=== PATIENT | male | born 1990 | race Caucasian/White ===

== ENCOUNTER 2016-11-20 23:14 | Emergency (ER) | payer OTHER ==
[~2016-11-20] VITALS: Ht 175.3 cm; Wt 86.4 kg
[2016-11-20] MEDS ORDERED: OMEP20 PO (23:25)
[2016-11-21] MEDS ORDERED: KETOROLAC TROMETHAMINE 60 MG/2 ML VIAL IM ONE (03:30)
[2016-11-21] MEDS ORDERED: PENICILLIN V POTASSIUM 500 MG TABLET PO ONE (03:30)
[2016-11-21 03:44] VITALS: BP 127/85
== END 2016-11-21 03:46 | disposition home or self-care (01) ==
LOC: EMS 23:17
DX: J02.9 Acute pharyngitis, unspecified (principal); Z88.8 Allergy status to other drugs, medicaments and biological substances
CPT/HCPCS: 80307; 96372; 99283; J1885